=== PATIENT | male | born 1975 | race African-American/Black ===

== ENCOUNTER 2018-03-06 10:32 | Inpatient (IN) | payer OTHER, SELFPAY ==
[2018-03-06 11:21] LABS: #Basophils 0.1 thou/uL (0.0-0.2); #Eosinphils 0.2 thou/uL (0.0-0.7); #Lymphocytes 1.8 thou/uL (1.20-3.40); #Monocytes 0.4 thou/uL (0.11-0.59); #Neutrophils 3.1 thou/uL (1.40-6.50); %Basophils 2.1 % (0.0-1.0); %Eosinophils 4.3 % (0.0-10.0); %Lymphocytes 31.7 % (21.0-51.0); %Monocytes 7.6 % (0.0-10.0); %Neutrophils 54.3 % (42.0-75.0); Hemoglobin 12.8 g/dL (14.0-18.0); Large Platelets SLIGHT; MDiff Complete? YES; Mean Corpuscular HGB CONC 30.6 g/dL (32.0-36.0); Mean Corpuscular Hemoglobin 24.5 pg (27.0-31.0); Mean Corpuscular Volume 80.1 fL (78.0-98.0); Platelet Count 216 thou/uL (130-400); Platelet Morphology Comment Appears Adequate; RBC Distribution Width 14.6 % (11.5-14.5); White Blood Cell (WBC) Count 5.6 thou/uL (4.8-10.8)
[2018-03-06 11:24] LABS: ALT (SGPT) 21 U/L (8-55); AST (SGOT) 25 U/L (5-34); Alkaline Phosphatase 69 U/L (40-150); Anion Gap 17 mmol/L (10-20); BUN (Urea Nitrogen) 22 mg/dL (8.9-20.6); Bilirubin, Total 0.8 mg/dL (0.2-1.2); CK (CPK) 294 U/L (30-200); Calc. Creatinine Clearance 0 mL/min (70-130); Calcium 9.1 mg/dL (7.8-10.44); Carbon Dioxide 20 mmol/L (22-29); Chloride 104 mmol/L (98-107); Estimated GFR-MDRD 47; Globulin 2.8 g/dL (2.4-3.5); Glucose 161 mg/dL (70-105); Potassium 3.4 mmol/L (3.5-5.1); Protein, Total 6.8 g/dL (6.0-8.3); Sodium 138 mmol/L (136-145)
--- NOTE | 2018-03-06 12:02 | RAD ---
PORTABLE CHEST: Date: 03/06/18 PROVIDED CLINICAL HISTORY: Chest pain. FINDINGS: No comparison. Cardiac silhouette appears enlarged. Left subclavian cardiac pacing device is noted. No definite foca l consolidation, pleural fluid, or pneumothorax apparent. IMPRESSION: No evidence for an acute cardiopulmonary process. POS: DENICE
[2018-03-06] MEDS ORDERED: Furosemide 40 MG/4 ML VIAL ONE (12:52)
[2018-03-06] MEDS ORDERED: Morphine 2 MG/ML SYRINGE ONE (12:52)
[2018-03-06] MEDS ORDERED: Artificial Tears 18 DROP/0.9 ML EA EYE PRN (14:31)
[2018-03-06] MEDS ORDERED: Acetaminophen 325 MG TAB PO PRN (14:31)
[2018-03-06] MEDS ORDERED: Diabetic Tussin 200 MG/10 ML UDCUP PO PRN (14:31)
[2018-03-06] MEDS ORDERED: Loperamide HCl 2 MG CAP PO PRN (14:31)
[2018-03-06] MEDS ORDERED: Loratadine 10 MG TAB PO PRN (14:31)
[2018-03-06] MEDS ORDERED: Calcium Carbonate 500 MG ChewTAB PO PRN (14:31)
[2018-03-06] MEDS ORDERED: Sodium Chloride 0.65% Nasal 44 ML BOT EA NARE PRN (14:31)
[2018-03-06] MEDS ORDERED: Cepastat Lozenges 1 LOZ PO PRN (14:31)
[2018-03-06] MEDS ORDERED: Zolpidem Tartrate 5 MG TAB PO PRN (14:31)
[2018-03-06] MEDS ORDERED: Eucerin (Mineral Oil/Petrolatum,White) 30 gm Jar TOP PRN (14:31)
[2018-03-06] MEDS ORDERED: Senokot S 8.6-50 MG TAB PO PRN (14:31)
[2018-03-06] MEDS ORDERED: HYDROcodone/Acetaminophen 5/325 mg Tablet PO PRN (14:31)
[2018-03-06] MEDS ORDERED: Bisacodyl 10 MG SUPP PR PRN (14:31)
[2018-03-06] MEDS ORDERED: hydrALAZINE 20 MG/ML VIAL SLOW IVP PRN (14:31)
[2018-03-06] MEDS ORDERED: HYDROcodone/Acetaminophen 5/325 mg Tablet ONE (14:34)
[2018-03-06 14:39] LABS: Troponin I 1.682 ng/mL (< 0.028)
[2018-03-06] MEDS ORDERED: Furosemide 40 MG/4 ML VIAL SLOW IVP SCH (14:45)
--- NOTE | 2018-03-06 16:39 | HP ---
PRIMARY CARE PHYSICIAN: [facility]. REASON FOR ADMISSION: [id number] NC. HISTORY OF PRESENT ILLNESS: A 42-year-old male, who has underlying history of cardiomyopathy, who came to emergency room for evaluation of chest pain. He described chest pain, substernal in location, associated with nausea. The pain is radiating to left arm. He feels associated palpitation and shortness of breath. Pain started this morning, which was on and off. There was no specific aggravating or relieving factors. The patient has underlying history of cardiomyopathy. He is following Dr. Turpin [facility]. He has AICD in place. He attributes his congestive heart failure secondary to hereditary etiology as his mother and other several family members also have cardiomyopathy. The patient had several admission at a [facility] for congestive heart failure related problem. He is first time coming in to our hospital. Today, his pain was more intense and he was also having increasing shortness of breath and that is why family member brought him to emergency room. In the emergency room, he had routine blood test done, which showed initially negative troponin, but subsequently second set of troponin was significantly elevated. He also had significantly elevated BNP and he was found with CKD stage 3. The patient reports that for last several months his exercise capacity is reducing lately, even after walking a few steps, he gets out of breath. He has orthopnea, PND, as well as occasional leg swelling. He denies any palpitation, but he feels lightheaded and he denies any syncopal episode. He denies any flu-like illness. He denies any fever, chills, constipation, diarrhea, melena, or hematochezia. He is taking his medication as prescribed by his benefits technician. REVIEW OF SYSTEMS: CONSTITUTIONAL: Negative for weight loss or gain, ability to conduct usual activities. SKIN: Negative for rash, itching. EYES: Negative for double vision, pain. ENT/MOUTH: Negative for nose bleeding, neck stiffness, pain, tenderness. CARDIOVASCULAR: Negative for palpitations, dyspnea on exertion, orthopnea. RESPIRATORY: Negative for shortness of breath, wheezing, cough, hemoptysis, fever or night sweats. GASTROINTESTINAL: Negative for poor appetite, abdominal pain, heartburn, nausea, vomiting, constipation, or diarrhea. GENITOURINARY: Negative for urgency, frequency, dysuria, nocturia. MUSCULOSKELETAL: Negative for pain, swelling. NEUROLOGIC/PSYCHIATRIC: Negative for anxiety, depression. ALLERGY/IMMUNOLOGIC: Negative for skin rash, bleeding tendency. Please see my HPI for pertinent positive and negative. All other review of systems reviewed and negative except as mentioned in HPI. PAST MEDICAL HISTORY: Cardiomyopathy, chronic systolic/diastolic heart failure, hypertension, chronic kidney disease stage 3. PAST SURGICAL HISTORY: AICD placement, ankle surgery. PAST PSYCHIATRIC HISTORY: Reviewed and negative. SOCIAL HISTORY: The patient is on disability. He lives at home with family. No history of tobacco, alcohol, or illicit drug abuse. FAMILY HISTORY: Cardiomyopathy runs among several family members including his mother and other family member. ALLERGIES: NO KNOWN DRUG ALLERGIES. CURRENT HOME MEDICATIONS: 1. Coreg 12.5 mg daily. 2. Lasix 20 mg daily. 3. Lisinopril 10 mg daily. 4. Aspirin 81 mg daily. EMERGENCY ROOM COURSE: The patient is given Lasix. PHYSICAL EXAMINATION: VITAL SIGNS: On arrival, blood pressure 123/93, pulse 98, respiratory rate 24, temperature 97.9, and saturation 95% on room air. Weight 61 kg. GENERAL: The patient is currently alert, awake, in no obvious acute distress. HEENT: Head; normocephalic and atraumatic. Eyes; pupils round and reactive to light. Extraocular muscle intact. ENT, oropharynx within normal limits. Moist mucous membranes. No oral lesion. No pharyngeal erythema. No exudate. NECK: Supple. JVD elevated. No thyromegaly. No carotid bruit. LUNGS: Air entry reduced at bases, but no rales. No accessory muscles of respiration in use. CARDIAC: S1 and S2 regular. S3 present. Gallop present. Systolic murmur present at the apex. No rub. ABDOMEN: Soft. Bowel sounds are present. Nontender. Nondistended. No organomegaly. No mass. No suprapubic tenderness. BACK: Unremarkable. No CVA tenderness. EXTREMITIES: Upper extremities; passive movement of all joints are normal. Lower extremities; trace edema noted. Good distal pulsation. No calf tenderness. NEUROLOGIC: Nonfocal examination. SIGNIFICANT LABORATORY DATA: BMP; sodium 138, potassium 3.4, chloride 104, carbon dioxide 104, BUN 22, creatinine 1.93, glucose 161, calcium 9.1. LFT; AST 25, ALT 21, alkaline phosphatase 69, albumin 4.0. CK 294. Troponin 0.010 and then 1.682. CBC; WBC 5.6, hemoglobin 12.8, platelet 216. IMAGING STUDIES: Chest x-ray showing cardiomegaly with AICD in place. EKG showing LVH with repolarization changes, biatrial enlargement, LAD. ASSESSMENT: 1. Azm-ZZ-ufsblnral myocardial infarction. 2. Acute on chronic congestive heart failure exacerbation. 3. Chronic kidney disease stage 3. 4. Hypertension. 5. Hypokalemia. PLAN: Full admission to telemetry floor. Cardiology consultation. Echocardiography. Lasix 40 mg IV b.i.d., lisinopril 5 mg daily, Coreg 6.25 mg b.i.d., and Lipitor 20 mg p.o. at bedtime. Check lipid profile tomorrow. Do serial cardiac enzyme. The patient will need cardiac transplantation evaluation. Heart Failure Clinic followup. Potassium will be replaced. Home medication, reconciled. Deep venous thrombosis prophylaxis with Lovenox 1 mg/kg subcu daily. GI prophylaxis, Pepcid 20 mg p.o. b.i.d. CODE STATUS: The patient is full code. The patient's mother is surrogate decision maker. DISPOSITION PLAN: Based on clinical course, we are expecting the patient's stay in hospital more than 2 midnights. Plan of care discussed with the patient and family member at bedside in the emergency room. Job ID: [id number]
[2018-03-06] MEDS ORDERED: Enoxaparin Sodium 60 MG/0.6 ML SYRINGE SC SCH (16:45)
[2018-03-06] MEDS ORDERED: Nitroglycerin 0.4 MG TAB (25 Tab Bottle) ONE (17:15)
[2018-03-06] MEDS: Nitroglycerin 0.4 MG TAB (25 Tab Bottle) SL PRN ×2 (17:18→17:23)
[2018-03-06] MEDS ORDERED: Nitroglycerin 50 MG/250 ML BOT 250 ML ONE (17:23)
[2018-03-06] MEDS ORDERED: Morphine 4 MG/ML VIAL SLOW IVP SCH ×2 (17:30→19:15)
[2018-03-06] MEDS: Carvedilol 6.25 MG TAB PO SCH (18:26)
[2018-03-06] MEDS ORDERED: Nitroglycerin 50 MG/250 ML BOT 250 ML IVPB SCH (18:30)
[2018-03-06] MEDS ORDERED: Clopidogrel Bisulfate 300 MG TAB PO SCH (18:30)
[2018-03-06] MEDS ORDERED: Morphine 4 MG/ML VIAL SLOW IVP PRN (19:15)
[2018-03-06] MEDS ORDERED: Furosemide 100 MG/10 ML VIAL SLOW IVP SCH (19:15)
[2018-03-06 19:17] LABS: Bilirubin Negative (Negative); Blood, Urine Negative (Negative); Clarity CLEAR (Clear); Glucose, Urine (Dipstick) Negative (Negative); Leukocyte Negative (Negative); Nitrite Negative (Negative); Protein, Urine (Dipstick) Negative (Neg-Trace); Specific Gravity, Urine 1.009 (1.002-1.036); Urobilinogen 0.2 mg/dL (0.2-1.0); pH, Urine 5.5 (5.0-9.0)
[2018-03-06 19:48] LABS: Bacteria/HPF None Seen HPF (None Seen); Hyaline Casts/LPF NONE SEEN LPF (0-3 Hyaline); RBC/HPF None Seen HPF (0-3); Squamous Epithelial 0-3 HPF (0-3); WBC/HPF None Seen HPF (0-3)
[2018-03-06] MEDS ORDERED: Atorvastatin Calcium 40 MG TAB PO SCH (21:00)
[2018-03-06] MEDS ORDERED: Famotidine 20 MG TAB PO SCH (21:00)
[2018-03-07 05:13] LABS: #Basophils 0.1 thou/uL (0.0-0.2); #Eosinphils 0.1 thou/uL (0.0-0.7); #Lymphocytes 1.8 thou/uL (1.20-3.40); #Monocytes 0.7 thou/uL (0.11-0.59); #Neutrophils 4.5 thou/uL (1.40-6.50); %Basophils 1.2 % (0.0-1.0); %Eosinophils 0.9 % (0.0-10.0); %Lymphocytes 25.4 % (21.0-51.0); %Monocytes 9.1 % (0.0-10.0); %Neutrophils 63.2 % (42.0-75.0); Hemoglobin 11.4 g/dL (14.0-18.0); Mean Corpuscular HGB CONC 31.4 g/dL (32.0-36.0); Mean Corpuscular Hemoglobin 24.6 pg (27.0-31.0); Mean Corpuscular Volume 78.5 fL (78.0-98.0); Platelet Count 201 thou/uL (130-400); RBC Distribution Width 14.5 % (11.5-14.5); Red Blood Cell (RBC) Count 4.63 mill/uL (4.70-6.10); White Blood Cell (WBC) Count 7.1 thou/uL (4.8-10.8)
[2018-03-07 05:35] LABS: ALT (SGPT) 28 U/L (8-55); AST (SGOT) 96 U/L (5-34); Albumin 3.6 g/dL (3.5-5.0); Alkaline Phosphatase 60 U/L (40-150); Anion Gap 14 mmol/L (10-20); BUN (Urea Nitrogen) 20 mg/dL (8.9-20.6); Bilirubin, Total 1.3 mg/dL (0.2-1.2); Calc. Creatinine Clearance 61 mL/min (70-130); Carbon Dioxide 23 mmol/L (22-29); Cardiac Risk 3.4 (Less than 4.5); Chloride 103 mmol/L (98-107); Cholesterol 130 mg/dl (< 200 Desired); Estimated GFR-MDRD 50; Globulin 2.5 g/dL (2.4-3.5); Glucose 148 mg/dL (70-105); HDL Cholesterol 38 mg/dL (>60 Neg Risk); LDL Cholesterol, Calculated 76 mg/dL; Magnesium 2.1 mg/dL (1.6-2.6); Potassium 3.4 mmol/L (3.5-5.1); Protein, Total 6.1 g/dL (6.0-8.3); Sodium 137 mmol/L (136-145); Triglycerides 80 mg/dL (Less than 150)
[2018-03-07] MEDS ORDERED: Furosemide 40 MG/4 ML VIAL SLOW IVP SCH ×2 (06:00→09:00)
[2018-03-07] MEDS ORDERED: Aspirin 325 MG TAB PO SCH (09:00)
[2018-03-07] MEDS ORDERED: Clopidogrel Bisulfate 75 MG TAB PO SCH (09:00)
[2018-03-07] MEDS ORDERED: Enoxaparin Sodium 40 MG/0.4 ML SYRINGE SC SCH (09:00)
[2018-03-07] MEDS ORDERED: Lisinopril 5 MG TAB PO SCH (09:00)
[2018-03-07] MEDS: Carvedilol 6.25 MG TAB PO SCH ×2 (09:13→17:33)
--- NOTE | 2018-03-07 10:58 | PDOC.PN ---
- Subjective Encounter Start Date: 03/07/18 Encounter Start Time: 09:00 -: old records requested/rev Patient seen and examined. No new complaints. No overnight events today he has no chest pain, he has less dyspnea, no fever, on nitro drip - Objective Resuscitation Status - Order Detail: 03/06/18 13:30 Resuscitation Status Routine Resuscitation Status: FULL: Full Resuscitation MAR Reviewed: Yes Vital Signs & Weight: Vital Signs (12 hours) Temp BP 03/07/18 09:13 120/82 03/07/18 08:00 98.0 F 03/07/18 04:00 98.0 F 03/07/18 00:00 97.8 F Weight Weight 178 lb 9.191 oz Most Recent Monitor Data Heart Rate from ECG 96 NIBP 128/79 NIBP BP-Mean 95 Respiration from ECG 23 SpO2 100 I&O: 03/06/18 03/07/18 03/08/18 06:59 06:59 06:59 Intake Total 1400 150 Output Total 1550 600 Balance -150 -450 Result Diagrams: 03/07/18 04:39 03/07/18 04:39 EKG Reviewed by me: Yes (nsr) Phys Exam - Physical Examination Constitutional: NAD HEENT: PERRLA, moist MMs, sclera anicteric JVD+ Respiratory: no wheezing, no rhonchi reduced air entry+ Cardiovascular: RRR, no rub SM+ Gastrointestinal: soft, non-tender, no distention, positive bowel sounds Musculoskeletal: pulses present, edema present Neurological: non-focal, normal sensation, moves all 4 limbs Lymphatic: no nodes Psychiatric: normal affect, A&O x 3 Skin: no rash, normal turgor Dx/Plan (1) Acute on chronic systolic ACC/AHA stage C congestive heart failure Code(s): I50.23 - ACUTE ON CHRONIC SYSTOLIC (CONGESTIVE) HEART FAILURE Status : Acute (2) Hypokalemia Code(s): E87.6 - HYPOKALEMIA Status: Acute (3) NSTEMI (non-ST elevated myocardial infarction) Code(s): I21.4 - NON-ST ELEVATION (NSTEMI) MYOCARDIAL INFARCTION Status: Acute (4) Anemia, normocytic normochromic Code(s): D64.9 - ANEMIA, UNSPECIFIED Status: Chronic (5) CKD (chronic kidney disease) stage 3, GFR 30-59 ml/min Code(s): N18.3 - CHRONIC KIDNEY DISEASE, STAGE 3 (MODERATE) Status: Chronic (6) Cardiomyopathy Code(s): I42.9 - CARDIOMYOPATHY, UNSPECIFIED Status: Chronic (7) Dyslipidemia Code(s): E78.5 - HYPERLIPIDEMIA, UNSPECIFIED Status: Chronic (8) Hypertension Code(s): I10 - ESSENTIAL (PRIMARY) HYPERTENSION Status: Chronic (9) Hyperuricemia Code(s): E79.0 - HYPERURICEMIA W/O SIGNS OF INFLAM ARTHRIT AND TOPHACEOUS DIS Status: Chronic - Plan cont current plan of care * spoke with cardiology, wanted to transfer to [facility] * cardiology spoke with Dr Medina and pt is accepted for higher level of care * meanwhile continue NTG drip, * today plavix loaded and continue lipitor * medication reviewed as below * symptomatic treatment. Review of Systems - Review of Systems ENT: negative: Ear Pain, Ear Discharge, Nose Pain, Nose Discharge, Nose Congestion, Mouth Pain, Mouth Swelling, Throat Pain, Throat Swelling, Other Respiratory: negative: Cough, Dry, Shortness of Breath, Hemoptysis, SOB with Excertion, Pleuritic Pain, Sputum, Wheezing Cardiovascular: negative: chest pain, palpitations, orthopnea, paroxysmal nocturnal dyspnea, edema, light headedness, other Gastrointestinal: negative: Nausea, Vomiting, Abdominal Pain, Diarrhea, Constipation, Melena, Hematochezia, Other Genitourinary: negative: Dysuria, Frequency, Incontinence, Hematuria, Retention , Other Musculoskeletal: negative: Neck Pain, Shoulder Pain, Arm Pain, Back Pain, Hand Pain, Leg Pain, Foot Pain, Other Skin: negative: Rash, Lesions, David, Bruising, Other - Medications/Allergies Allergies/Adverse Reactions: Allergies Allergy/AdvReac Type Severity Reaction Status Date / Time No Known Drug Allergies Allergy Verified 03/06/18 14:35 Medications: Current Medications Acetaminophen (Tylenol) 650 mg PO Q4H PRN PRN Reason: Headache/Fever/Mild Pain (1-3) Hydrocodone Bitart/Acetaminophen (Embarrass 5/325) 1 tab PO Q4H PRN PRN Reason: Moderate Pain (4-6) Albuterol/Ipratropium (Duoneb) 3 ml NEB [id number] PRN PRN Reason: SOB &/or Wheezing Artificial Tears (Tears Naturale) 2 drop EA EYE PRN PRN PRN Reason: Dry Eyes Aspirin (Aspirin Chewable) 81 mg PO DAILY [facility] Last Admin: 03/07/18 09:13 Dose: 81 mg Atorvastatin Calcium (Lipitor) 80 mg PO HS [facility] Last Admin: 03/06/18 21:41 Dose: 80 mg Bisacodyl (Dulcolax) 10 mg NM DAILYPRN PRN PRN Reason: Constipation Calcium Carbonate (Tums) 1,000 mg PO Q4H PRN PRN Reason: Heartburn or Indigestion Carvedilol (Coreg) 6.25 mg PO BID-[facility] Last Admin: 03/07/18 09:13 Dose: 6.25 mg Clopidogrel Bisulfate (Plavix) 75 mg PO DAILY [facility] Last Admin: 03/07/18 09:13 Dose: 75 mg Enoxaparin Sodium (Lovenox) 40 mg SC 0900 [facility] Last Admin: 03/07/18 09:13 Dose: 40 mg Famotidine (Pepcid) 20 mg PO Q24HR [facility] Last Admin: 03/06/18 21:41 Dose: 20 mg Furosemide (Lasix) 40 mg SLOW IVP DAILY [facility] Last Admin: 03/07/18 09:15 Dose: Not Given Guaifenesin (Robitussin Sf) 200 mg PO Q4H PRN PRN Reason: Cough Hydralazine HCl (Apresoline) 10 mg SLOW IVP Q4H PRN PRN Reason: SBP > 180 and HR < 70 Nitroglycerin/Dextrose (Nitroglycerin 50 Mg/250 Ml Bot) 250 mls @ 0 mls/hr IVPB INF [facility]; Protocol Loperamide HCl (Imodium) 2 mg PO PRN PRN PRN Reason: Diarrhea/Loose Stools Loratadine (Claritin) 10 mg PO DAILYPRN PRN PRN Reason: Sinus Symptoms Mineral Oil/White Petrolatum (Eucerin Cream) 0 gm TOP BIDPRN PRN PRN Reason: Dry Skin Morphine Sulfate (Morphine) 2 mg SLOW IVP Q2H PRN PRN Reason: .CHEST PAIN Last Admin: 03/07/18 05:44 Dose: 2 mg Nitroglycerin (Nitrostat) 0.4 mg SL Q5MIN PRN PRN Reason: Chest Pain Last Admin: 03/06/18 17:23 Dose: 0.4 mg Senna/Docusate Sodium (Senokot S) 2 tab PO BID PRN PRN Reason: Constipation Sodium Chloride (Mellette Nasal [place] 0.65%) 0 ml EA NARE QIDPRN PRN PRN Reason: Nasal Congestion Throat Lozenges (Cepastat Lozenges) 1 leonel PO Q2H PRN PRN Reason: Sore Throat Zolpidem Tartrate (Ambien) 5 mg PO HSPRN PRN PRN Reason: Insomnia
--- NOTE | 2018-03-07 11:19 | DIS ---
DATE OF ADMISSION: 03/06/2018 DATE OF DISCHARGE: 03/07/2018 PRIMARY CARE PHYSICIAN: [facility] Call admission. DISCHARGE DISPOSITION: [facility]. PRIMARY DISCHARGE DIAGNOSES: 1. Known ST elevation myocardial infarction. 2. Acute on chronic systolic congestive heart failure, ACC stage C. 3. Hypokalemia, replaced. 4. Hyperuricemia. SECONDARY DISCHARGE DIAGNOSES: 1. Hypertension. 2. Dyslipidemia. 3. Chronic kidney disease stage 3. 4. Chronic cardiomyopathy. 5. Normocytic normochromic anemia. PRIMARY PROCEDURE/OPERATION: None. RADIOLOGICAL INVESTIGATION: Chest x-ray showed no acute cardiopulmonary process, AICD in place. SIGNIFICANT LABORATORY DATA: WBC 7.1, hemoglobin 11.4, and platelet 201. Sodium 137, potassium 3.4, BUN 20, creatinine 1.83, calcium 9.0, uric acid 11.0. AST is 96, ALT 28, alkaline phosphatase 60, albumin 3.6, and LDL 76. TSH 0.84. Troponin 4.5. BNP 2007. Urinalysis normal. DISCHARGE MEDICATIONS: 1. Aspirin 81 mg p.o. daily. 2. Lasix 80 mg p.o. daily. 3. Lisinopril 10 mg daily. 4. Coreg 6.25 mg p.o. b.i.d. 5. Plavix 75 mg p.o. daily. 6. Lipitor 80 mg p.o. at bedtime. CONTRAINDICATION: None. CODE STATUS: Full code. INPATIENT ANALYST MICROBIOLOGY LAB: Dr. Moyer was consulted while in the hospital. Dr. Moyer recommended to continue nitroglycerin drip in ICU. Dr. Moyer spoke with Dr. Medina, who accepted this patient to transfer for higher level of care. HOSPITAL COURSE: A 42-year-old male, who has long history of cardiomyopathy, who was following Dr. Turpin at [facility]. He has AICD in place. He has cardiomyopathy and chronic systolic heart failure that is gradually getting worse. He was admitted in our hospital for chest pain. His chest pain description was typical and he was found with non-ST elevation [place]. Cardiology was consulted. Cardiology started on nitroglycerin drip in ICU. This patient has end-stage cardiomyopathy and that is why Cardiology recommended to transfer him to higher level of care for transplant evaluation. Our offshore wind turbine technician, Dr. Moyer spoke with Dr. Medina and he accepted this patient to take care of him further as long as if insurance approves and arrangement is done, then this patient will be a transferred to [facility] later on today. The patient is seen and examined at bedside today. REVIEW OF SYSTEMS: All review of systems reviewed with him and negative. PHYSICAL EXAMINATION: VITAL SIGNS: Currently, blood pressure 120/82, pulse 99, respiratory rate is 22, and saturation 100% on 1 L oxygen. Weight 178 pounds. GENERAL: The patient is currently alert and awake, in no obvious acute distress. HEENT: Head; normocephalic and atraumatic. Eyes; pupils are round and reactive to light. Extraocular muscle intact. ENT, oropharynx within normal limits. Moist mucous membranes. No oral lesion. No pharyngeal erythema. No exudate. NECK: Supple. No JVD. No thyromegaly. No carotid bruit. No jugular venous distention. LUNGS: Clear to auscultation without any rhonchi or rales. CARDIAC: S1 and S2 regular without any murmur. ABDOMEN: Soft and benign. EXTREMITIES: No edema. Good distal pulsation. SKIN: No skin rash. NEUROLOGIC: Nonfocal examination. Paperwork for discharge done and the patient will be discharged later on today if possible. Job ID: [id number]
[2018-03-07 16:16] VITALS: TEMP 98.7
[2018-03-07] MEDS ORDERED: hydrALAZINE 10 MG TAB PO SCH ×2 (18:00→21:00)
[2018-03-07] MEDS ORDERED: Furosemide 100 MG/10 ML VIAL SLOW IVP SCH (18:00)
[2018-03-07 18:21] VITALS: BP 132/87
--- NOTE | 2018-03-08 08:33 | CON ---
DATE OF CONSULTATION: TIME: 2 hours. HISTORY OF PRESENT ILLNESS: This is an unfortunate 42-year-old male with a history of severe cardiomyopathy, who presented with a chest discomfort. The patient has been followed primarily by Dr. Turpin for a nonischemic cardiomyopathy. He underwent a cardiac catheterization in 2011, and was found to have apparently normal coronary arteries. The patient has been on medical therapy. He was subsequently placed on automatic implantable cardiac defibrillator. The patient states he has been compliant with his medications. The patient presented to the emergency room with acute onset of substernal chest discomfort. PAST MEDICAL HISTORY: Significant for, 1. Cardiomyopathy. 2. Hypertension. 3. Chronic renal insufficiency. PAST SURGICAL HISTORY: He has had ankle surgery. SOCIAL HISTORY: Nonsmoker. FAMILY HISTORY: Strong family history of cardiomyopathy. ALLERGIES: NO KNOWN DRUG ALLERGIES. PHYSICAL EXAMINATION: GENERAL: This is an ill-appearing gentleman in acute distress with a blood pressure of 121/82. NECK: Showed jugular venous distention to the jaw. LUNGS: Have crackles in both lung marroquin. HEART: Regular rate and rhythm. Normal S1, S2 with no murmurs. ABDOMEN: Distended. EXTREMITIES: Showed trace edema. LABORATORY RESULTS: Sodium 130, potassium 3.4, chloride 104, bicarbonate 20, BUN 22, creatinine 1.93, glucose 161. Troponin was 4.5. BNP is 2007. White blood cell count 5.6, hemoglobin 12.8, hematocrit 41.6, platelets are 216. DIAGNOSTIC DATA: His EKG revealed normal sinus rhythm with a ST-T wave abnormality suggestive of ischemia. IMPRESSION: 1. Mild non-Q-wave myocardial infarction. 2. Severe cardiomyopathy. 3. Chronic renal failure. 4. Hypertension. 5. History of automatic implantable cardioverter-defibrillator placement. PLAN: This unfortunate gentleman suffered from myocardial infarction. He has chronic renal insufficiency and a known severe cardiomyopathy. I would recommend at this time the patient be treated with aspirin, Plavix, lipid-lowering medication. The patient will be at high risk for complication, should undergo invasive evaluation with his chronic renal insufficiency and severe decrease in left ventricular systolic function. We will attempt to transfer the patient to a center which would have left ventricular assist device should the patient deteriorate during an invasive evaluation. We will follow this critically ill patient with you through his hospitalization. Job ID: [id number]
== END 2018-03-07 19:32 | disposition short-term general hospital (02) | DRG 280 ==
LOC: ERS 10:32 → 2NO 16:46 → CCU 17:49
PROVIDERS: ADMIT Internal Medicine; ATTEND Internal Medicine
DX: I21.4 Non-ST elevation (NSTEMI) myocardial infarction (principal); I50.23 Acute on chronic systolic (congestive) heart failure; I13.0 Hypertensive heart and chronic kidney disease with heart failure and stage 1 through stage 4 chronic kidney disease, or unspecified chronic kidney disease; I42.8 Other cardiomyopathies; N18.3 Chronic kidney disease, stage 3 (moderate); D63.1 Anemia in chronic kidney disease; E87.6 Hypokalemia; E79.0 Hyperuricemia without signs of inflammatory arthritis and tophaceous disease; Z95.810 Presence of automatic (implantable) cardiac defibrillator; Z82.49 Family history of ischemic heart disease and other diseases of the circulatory system; Z79.82 Long term (current) use of aspirin
CPT/HCPCS: 36415; 71045; 80053; 80061; 81001; 82550; 83735; 83880; 84443; 84484; 84550; 85025; 93005; 93010; 93306; 94760; 96374; 96375; J1650; J1940; J2270